=== PATIENT | female | born 1955 | race Caucasian/White ===

== ENCOUNTER 2017-08-21 07:09 | Day surgery (SDC) | payer BC ==
--- NOTE | 2017-08-11 08:32 | HP ---
PREOPERATIVE HISTORY AND PHYSICAL: DATE OF ADMISSION: 08/21/17 PROVIDER: Rashid Amos MD * (DICTATED BY ABHIJIT HAWKINS) CHIEF COMPLAINT: Right wrist mass, right ring and small finger numbness, tingling, and pain. HISTORY OF PRESENT ILLNESS: Ms. Abbasi is a 62-year-old female who has had ongoing troubles with numbness, tingling, and pain in her right hand. She has also had a large dorsal-sided mass for quite sometime. She underwent ulnar nerve decompression by Dr. Soto previously and has continued to have some persistent symptoms of cubital tunnel since. She also had an MRI of the wrist showing a ganglion cyst around the ECU tendon which has gotten a lot larger. She has mild-to- moderate discomfort around the area. She is interested in surgical intervention at this time. PAST MEDICAL HISTORY: Rheumatoid arthritis and seasonal allergies. PAST SURGICAL HISTORY: section in 1992, ulnar nerve decompression in 2013, laparotomy, and tonsillectomy. She reports no complications with anesthesia with those procedures. CURRENT MEDICATIONS: 1. Humira Pen 40 mg subcutaneously every other week. 2. Sulfasalazine 500 mg 2 tabs in the morning. 3. Multivitamin daily. 4. Claritin 10 mg daily as needed. 5. Tylenol 325 mg t.i.d. p.r.n. ALLERGIES: METHOTREXATE and ACTEMRA. FAMILY HISTORY: Positive for diabetes and cancer. Negative for heart disease. SOCIAL HISTORY: She lives with her spouse. She currently works part-time as a sap basis consultant. She quit smoking 12 years ago. She occasionally consumes alcohol. She exercises sporadically. REVIEW OF SYSTEMS: Constitutional: Negative for recent hospitalizations, fevers, chills, night sweats, or unexplained weight loss. Head: Negative for headaches, lightheadedness, or balance problems. PHYSICAL EXAMINATION VITAL SIGNS: The patient is 5 feet 3 inches, 154 pounds. Blood pressure 121/69 , pulse of 63, respirations 15. HEENT: Normocephalic and atraumatic. Hearing and vision are grossly intact. NECK: Her trachea is midline. RESPIRATORY: Lungs are clear to auscultation bilaterally. No wheezes, rales, or rhonchi. CARDIOVASCULAR: Regular rate and rhythm. No murmurs, rubs, or gallops. Normal S1 and S2. ABDOMEN: Soft, nondistended, nontender. Normal bowel sounds. EXTREMITIES: Exam of the right upper extremity, skin is intact without abrasions or open wounds. She has a large dorsal ulnar wrist mass over the right ECU tendon. It is about 5 to 8 cm in length and 3 cm wide. It protrudes out about 1 cm. It is nodular and has the appearance of either a very large ganglion, more likely rheumatoid synovitis. She has good motion of the wrist. She does have decreased sensation over the ulnar nerve distribution. She has a positive Tinel's over the Crawford's ligament at the elbow. Elbow flexion test is positive after about 10 seconds. It is relieved with arm straightening. Compression over the ulnar nerve causes discomfort and increased tingling at the ring and small fingers. Carpal compression test is negative. Tinel's over the median nerve is negative. She has good range of motion of the fingers with no loss of strength. Thenar and first dorsal interosseous strength is 5/5. IMPRESSION: Right dorsal ulnar wrist mass and ulnar neuropathy. PLAN: The patient is to undergo right wrist mass excision and right revision ulnar nerve decompression at the elbow with transposition by Dr. Amos on 08/21. The risks, benefits, and postoperative course were discussed with the patient at length and she would like to proceed. A prescription for [place] has been sent to her pharmacy for postoperative pain. All of her questions were answered to her full satisfaction. We will follow up with the patient postoperatively. ABHIJIT HAWKINS [id number]/[facility] #: [id number] JULIET
[~2017-08-21 07:09] MED LIST: Buffered Lidocaine 0.9% SYRIN* 5 ML/SYR SYRINGE INTRADERM ONE; Famotidine IV* 10 MG/ML 2 ML (20 mg) IV ONE
[2017-08-21] MEDS ORDERED: Famotidine IV* 10 MG/ML 2 ML (20 mg) ONE (07:38)
[2017-08-21] MEDS ORDERED: ceFAZolin 2 GM PREMIX (*) 2 GM/50 ML BAG IVPB ONE (07:40)
[2017-08-21] MEDS ORDERED: Bupivacaine 0.5% W/EPI SDV* 30 ML VIAL ONE (09:06)
[2017-08-21] MEDS ORDERED: Bupivacaine 0.25% SDV* 30 ML ONE (09:06)
[2017-08-21] MEDS ORDERED: Midazolam* 1 MG/ML 2 ML VIAL (2 MG) ONE (09:57)
[2017-08-21] MEDS ORDERED: fentaNYL* 50 MCG/ML 2 ML VIAL (100 MCG VIAL) ONE ×2 (09:59→10:41)
[2017-08-21] MEDS ORDERED: Lidocaine 2% PF * 5 ML VIAL ONE (10:15)
[2017-08-21] MEDS ORDERED: Ketorolac INJ* 30 MG/ML 1 ML VIAL ONE (10:15)
[2017-08-21] MEDS ORDERED: Ondansetron INJ* 2 MG/ML VIAL ONE (10:15)
[2017-08-21] MEDS ORDERED: Dexamethasone IV* 4 MG/ML 1 ML (4 MG) ONE (10:15)
[2017-08-21] MEDS ORDERED: Propofol* 10 MG/ML 20 ML BTL IV PUSH ONE (10:15)
[2017-08-21] MEDS ORDERED: HYDROmorphone INJ* 1 MG/ML CARPUJECT SYRINGE IV PRN (11:01)
[2017-08-21] MEDS ORDERED: oxyCODONE/Acetamin 5/325 MG* TAB PO PRN (11:01)
[2017-08-21] MEDS ORDERED: HYDROmorphone INJ* 1 MG/ML CARPUJECT SYRINGE ONE (12:05)
[2017-08-21 13:03] VITALS: BP 102/61
--- NOTE | 2017-08-25 12:08 | OP ---
DATE OF OPERATION: 08/21/17 - [facility] DATE OF : 57 SURGEON: Rashid Amos MD FUR CLIPPER: ABHIJIT Torres. An elementary assistant principal was needed for the entirety of the procedure to aid in the positioning of the nerve and retraction. ANESTHESIOLOGIST: Dr. Garner. ANESTHESIA: General. PRE-OP DIAGNOSES: 1. Right dorsal ulnar wrist rheumatoid synovitis. 2. Right cubital tunnel syndrome with unstable ulnar nerve, status post right in situ cubital tunnel release a couple of years ago. POST-OP DIAGNOSES: 1. Right dorsal ulnar wrist rheumatoid synovitis. 2. Right cubital tunnel syndrome with unstable ulnar nerve, status post right in situ cubital tunnel release a couple of years ago. OPERATIVE PROCEDURE: 1. Excision of right dorsal ulnar proliferative rheumatoid synovitis off of the 6th dorsal compartment tendon sheath and the wrist joint. 2. Revision ulnar nerve decompression at the elbow with anterior transposition. ESTIMATED BLOOD LOSS: 5 mL. INDICATIONS: Tram has had the development of a very large amount of synovitis in the dorsal ulnar wrist. It protrudes outward over a centimeter. It is quite a large area. It has been stable in size. She has been working with repairer recreational vehicle and is on appropriate antirheumatoid medications, but the synovitis is not going down. Additionally, she had a previous in situ cubital tunnel release. She has now developed significant instability of the nerve and constant numbness and tingling in the ring and small fingers. I talked to her about her options and she wanted to proceed with surgical intervention from both the synovitis and the ulnar nerve. COMPLICATIONS: None. FINDINGS: As per description of the procedure. DESCRIPTION OF PROCEDURE: Tram was seen in the preoperative holding area. The correct side, site, and procedure were identified. We came back to the operating room. The arm was prepped and draped in the usual fashion. A time- out was performed. I began by exsanguinating the arm with the Esmarch and the tourniquet was inflated to 250 mmHg. A made a longitudinal incision over the dorsal ulnar wrist just over the 6th dorsal compartment. Dissection was carried down. The dorsal ulnar sensory nerve was visualized and protected and retracted throughout the entirety of the case. I began the excision of a very large amount of synovitis. It was wrapped and so freed around the ECU tendon. The retinaculum and subsheath were very degenerative and attenuated and very thin. The retinaculum over the 6th dorsal compartment tendon sheath was opened. The synovitis was circumferentially excised around the tendon and that portion was handed off as a specimen. There was then also a portion coming off of the dorsal ulnar wrist joint. This was carried down to the wrist joint and fully excised, excising just a small portion of the capsule with this. This was then handed off as well. Once the synovectomy was completed and everything was looking clean and avoid if synovitis tissue, I went ahead and irrigated everything out. The retinaculum was repaired and tightened up over the ECU tendon. The skin was closed with 3-0 Monocryl suture. I then turned my attention to the elbow. The shoulder was abducted and externally rotated. Her prior incision was marked out. It was extended just a bit proximally and distally. Incision was made through the ulnar incision, dissection was carried down through the scar tissue proximally and non-scarred subcutaneous tissue and the ulnar nerve was encountered. A release was carried down from proximal to distal. The nerve was draped over the medial epicondyle and frankly when I was flexed and extended the elbow, the nerve was seem to frankly snap over the medial epicondyle. It was very fanned out and stretched over the medial epicondyle. I went ahead and fully and circumferentially neurolysed to the nerve. The motor branches to the FCU heads were preserved and a little bit of intraneural dissection was carried along the motor branches to gain length for the transposition. I then went ahead and raised opposing step-cut type flaps in my fascia over the flexor pronator mass. The muscle was released off the undersurface of the fascial flaps. The septi were excised. The medial intermuscular septum had been completely excised. The leading edge of the FCU fascia had been completely excised. The ulnar nerve was then transposed on to the muscle bed, so that there were no edges that were kinked and nothing, but comfortable positioning for the nerve. The opposing flaps were then brought and sewed end-to-end to provide a fascial sling to keep the nerve in the transposed position. The elbow was then flexed and extended multiple times to make sure that there is absolutely no kinking on the nerve and no compression of the nerve. Everything looked good, so we went head and irrigated out the wound. A cautery was obtained with a Bovie. The subcutaneous tissue was reapproximated with 3-0 Vicryl, the skin was closed with 3-0 Monocryl suture. All the operative sites were infiltrated with 0.25% plain Marcaine. The wounds were dressed with Xeroform, 4x4s, and ABD at the elbow, sterile Webril and then a long-arm splint with a lateral buttress was applied on the elbow and about 70 to 80 degrees of flexion. The tourniquet was deflated and the hand pinked up immediately. She was woken up and taken to the recovery room in stable condition. [id number]/[facility] #: [id number] MTDD
== END 2017-08-21 12:56 | disposition home or self-care (01) ==
LOC: OREAST 07:09
PROVIDERS: ATTEND Orthopaedic Surgery Hand Surgery
DX: M65.831 Other synovitis and tenosynovitis, right forearm (principal); G56.21 Lesion of ulnar nerve, right upper limb; M06.9 Rheumatoid arthritis, unspecified; Z88.8 Allergy status to other drugs, medicaments and biological substances; J30.2 Other seasonal allergic rhinitis; Z87.891 Personal history of nicotine dependence
CPT/HCPCS: 88304; J0690; J1100; J1170; J1885; J2250; J2405; J2704; J3010